=== PATIENT | male | born 1995 | race African-American/Black ===

== ENCOUNTER 2018-07-29 12:05 | Emergency (ER) | payer SELFPAY | END 2018-07-29 12:12 | disposition left against medical advice (07) | LOC: M ED 12:05 | DX: Z53.21 Procedure and treatment not carried out due to patient leaving prior to being seen by health care provider (principal) ==

== ENCOUNTER 2018-08-14 08:41 | Emergency (ER) | payer BC, SELFPAY ==
[2018-08-14] MEDS: AUGMENTIN 875 MG TAB PO (09:35)
[2018-08-14] MEDS: NAPROXEN 250 MG TAB PO (09:35)
[2018-08-14] MEDS: NORCO, ANEXSIA 5/325MG TABLET (HYDROcodone/ACETAMINOPHEN) PO (09:35)
== END 2018-08-14 09:36 | disposition home or self-care (01) ==
LOC: M ED 08:41
DX: Z98.818 Other dental procedure status (principal); K08.89 Other specified disorders of teeth and supporting structures; Z72.0 Tobacco use
CPT/HCPCS: 99282